=== PATIENT | female | born 2000 | race Caucasian/White ===

== ENCOUNTER → 2022-08-24 11:30 | Outpatient (BNVA) | payer MEDICAID, SELFPAY | PROVIDERS: Visit Provider Obstetrics & Gynecology | DX: Z34.00 Encounter for supervision of normal first pregnancy, unspecified trimester (principal) | CPT/HCPCS: 80307; 84315; 84443; 85025; 86592; 86762; 86803; 86850; 86900; 87086; 87340; 87491; 87591; 87661; 87806; 88175 ==

== ENCOUNTER → 2022-09-14 14:00 | Outpatient (BNVA) | payer MEDICAID, SELFPAY | PROVIDERS: Visit Provider Obstetrics & Gynecology | DX: O09.899 Supervision of other high risk pregnancies, unspecified trimester (principal); Z3A.00 Weeks of gestation of pregnancy not specified | CPT/HCPCS: 81000; 87491; 87591; 87661 ==

== ENCOUNTER → 2022-11-15 15:59 | Outpatient (BNVA) | payer MEDICAID, SELFPAY | PROVIDERS: Visit Provider Nurse Practitioner Women's Health | DX: O09.899 Supervision of other high risk pregnancies, unspecified trimester (principal); Z3A.00 Weeks of gestation of pregnancy not specified | CPT/HCPCS: 81000 ==

== ENCOUNTER → 2022-12-06 09:47 | Outpatient (BNVA) | payer MEDICAID, SELFPAY | PROVIDERS: Visit Provider Obstetrics & Gynecology | DX: O09.899 Supervision of other high risk pregnancies, unspecified trimester (principal); Z3A.00 Weeks of gestation of pregnancy not specified | CPT/HCPCS: 81000 ==

== ENCOUNTER → 2022-12-21 10:10 | Outpatient (BNVA) | payer MEDICAID, SELFPAY | PROVIDERS: Visit Provider Obstetrics & Gynecology | DX: O09.899 Supervision of other high risk pregnancies, unspecified trimester (principal); Z3A.00 Weeks of gestation of pregnancy not specified | CPT/HCPCS: 81000; 82950; 85025 ==

== ENCOUNTER → 2023-01-03 10:45 | Outpatient (BNVA) | payer MEDICAID, SELFPAY | PROVIDERS: Visit Provider Obstetrics & Gynecology | DX: O09.899 Supervision of other high risk pregnancies, unspecified trimester (principal); Z3A.00 Weeks of gestation of pregnancy not specified | CPT/HCPCS: 81000; 85025; 87086 ==

== ENCOUNTER → 2023-01-17 10:26 | Outpatient (BNVA) | payer MEDICAID, SELFPAY | PROVIDERS: Visit Provider Nurse Practitioner Women's Health | DX: O09.899 Supervision of other high risk pregnancies, unspecified trimester (principal); Z3A.00 Weeks of gestation of pregnancy not specified | CPT/HCPCS: 81000 ==

== ENCOUNTER → 2023-01-31 09:57 | Outpatient (BNVA) | payer MEDICAID, SELFPAY | PROVIDERS: Visit Provider Obstetrics & Gynecology | DX: O09.899 Supervision of other high risk pregnancies, unspecified trimester (principal) | CPT/HCPCS: 81000; 85025 ==

== ENCOUNTER → 2023-02-07 11:35 | Outpatient (BNVA) | payer MEDICAID, SELFPAY | PROVIDERS: Visit Provider Obstetrics & Gynecology | DX: O09.899 Supervision of other high risk pregnancies, unspecified trimester (principal); Z3A.00 Weeks of gestation of pregnancy not specified | CPT/HCPCS: 80053; 81000; 85025; 87086 ==

== ENCOUNTER → 2023-02-14 11:05 | Outpatient (BNVA) | payer MEDICAID, SELFPAY | PROVIDERS: Visit Provider Obstetrics & Gynecology | DX: O09.899 Supervision of other high risk pregnancies, unspecified trimester (principal); Z3A.00 Weeks of gestation of pregnancy not specified | CPT/HCPCS: 81000; 87081 ==

== ENCOUNTER → 2023-02-21 10:30 | Outpatient (BNVA) | payer MEDICAID, SELFPAY | PROVIDERS: Visit Provider Obstetrics & Gynecology | DX: O09.899 Supervision of other high risk pregnancies, unspecified trimester (principal); Z3A.00 Weeks of gestation of pregnancy not specified | CPT/HCPCS: 81000; 87086 ==

== ENCOUNTER 2023-02-28 11:00 | Outpatient (CLI) | payer MEDICAID, SELFPAY ==
[2023-02-28] VITALS (13 sets, daily range): BP systolic 110–135; BP diastolic 56–78; PULSE 71–96; BMI 39.9
== END 2023-02-28 12:20 | disposition home or self-care (01) ==
LOC: OPOB 11:01 → OBGYN 11:01
PROVIDERS: Visit Provider Obstetrics & Gynecology
DX: O36.60X0 Maternal care for excessive fetal growth, unspecified trimester, not applicable or unspecified (principal); Z3A.00 Weeks of gestation of pregnancy not specified
CPT/HCPCS: 59025; 81000; 99211

== ENCOUNTER 2023-03-01 01:16 | Outpatient (CLI) | payer MEDICAID, SELFPAY ==
[2023-03-01 01:26] VITALS: RESP 18; BMI 39.9
[2023-03-01 01:49] VITALS: TEMP 35.6
[2023-03-01 01:50] VITALS: BP 132/67; PULSE 83
[2023-03-01 02:02] LABS: Actim Prom Negative
[2023-03-01 02:10] VITALS: BP 126/74; PULSE 88
[2023-03-01 02:15] VITALS: BP 126/74; PULSE 88; RESP 17; TEMP 36.8
[2023-03-01 02:26] LABS: Nitrazine Paper, PH Inconclusive
== END 2023-03-01 02:15 | disposition home or self-care (01) ==
LOC: OPOB 01:25 → OBGYN 01:30
PROVIDERS: Visit Provider Obstetrics & Gynecology
DX: O26.899 Other specified pregnancy related conditions, unspecified trimester (principal); N89.8 Other specified noninflammatory disorders of vagina; Z3A.00 Weeks of gestation of pregnancy not specified
CPT/HCPCS: 59025; 83986; 84112; 99211

== ENCOUNTER 2023-03-03 00:03 | Inpatient (IN) | payer MEDICAID, SELFPAY ==
[2023-03-02 22:42] VITALS: BP 129/73; PULSE 69
[2023-03-02 23:09] VITALS: RESP 16; TEMP 36.6
[2023-03-02 23:40] VITALS: BP 131/70; PULSE 71
[2023-03-03] VITALS (39 sets, daily range): BP systolic 103–155; BP diastolic 55–91; PULSE 83–113; RESP 16–18; TEMP 36.2–36.7; O2SAT 97–99; BMI 39.9
[2023-03-03 00:34] LABS: Basophils % 0.2 %; Eosinophils # 0.1 10^3/uL (0.0-0.8); Eosinophils % 0.5 %; Hemoglobin 11.3 g/dL (11.5-15.3); Lymphocytes # 1.7 10^3/uL (0.8-4.8); Lymphocytes % 12.6 %; Mean Corpuscular HGB Conc 32.3 g/dL (30.0-36.0); Mean Corpuscular Hemoglobin 27.6 pg (28.0-34.0); Mean Corpuscular Volume 85.6 fl (81-99); Mean Platelet Volume 11.9 fL (7.4-10.4); Monocytes # 0.6 10^3/uL (0.2-0.9); Monocytes % 4.7 %; Neutrophils # 10.74 10^3/uL (1.8-7.7); Neutrophils % 81.6 %; Nucleated Red Blood Cells % 0 %; Platelet Count 183 10^3/cmm (130-400); Red Blood Count 4.09 10^6/uL (4.1-5.3); White Blood Count 13.2 10^3/uL (4.0-10.0)
[2023-03-03 00:49] LABS: Slide Review Slide Review Perform
[2023-03-03] MEDS: dextrose 5%-lactated ringers 1,000 ML 125 ML IV (06:16)
--- NOTE | 2023-03-03 06:22 | PM.OPHPUD ---
Labor & Delivery H&P Update Date of Procedure: March 03, 2023 Date H&P Performed: 02/28/23 H&P update information: I have reviewed H&P completed within last 30 days and I have examined patient prior to procedure Changes to previous documentation: The patient presents for SROM at home. She has grossly ruptured membranes. Cervix Admission Diagnosis: iup @ 38w2d, LGA, history of gestational hypertension, labile blood pressure, obesity, bipolar disorder (no medication) Related Problem List Diagnoses (1) macrosomia: (2) Obesity: (3) Bipolar disorder: (4) History of gestational hypertension: (5) Supervision of other high-risk :
[2023-03-03] MEDS: ampicillin 2,000 MG in sodium chloride 0.9% (plus) 50 ML 100 MG IV (09:36)
[2023-03-03] MEDS: ampicillin 1,000 MG in sodium chloride 0.9% (plus) 50 ML 100 MG IV (14:31)
[2023-03-03] MEDS: fentaNYL 50 mcg/mL INJ 2mL IVP ×2 (14:31→15:38)
[2023-03-03] MEDS: lactated ringers 1,000 ML 999 ML IV (15:38)
--- NOTE | 2023-03-03 16:22 | P.ANESASSM_ITS ---
Pre-Anesthetic Assessment Height/Weight: Height 1.8 m Weight 129.727 kg Temp Pulse Resp BP Pulse Ox O2 Del Method 98.0 F 93 18 133/79 97 Room Air 03/03/23 04:16 03/03/23 16:13 03/03/23 15:38 03/03/23 16:13 03/03/23 15:59 03/03/23 07:00 Preop Diagnosis: IUP Labor Epidural Familial anesthetic complications: None Last intake: solid 1600 03/02/23 clears- current Social No alcohol and No tobacco Exam alert, oriented x 3 and clear to auscultation bilaterally Airway Submandibular: within normal limits Cervical ROM: within normal limits Mallampati: Class II Dentition: full History/ROS No significant history except as noted Pulmonary None reported CV/HEM None reported None reported Hepatic None reported GI None reported Metabolic Morbid Obesity Neuropsych Bipolar Anesthetic Plan ASA status: 2 Anesthesia: Regional (specify below) Other: Labor Epidural Medications/Allergies Home Medications Medication Instructions Recorded Confirmed Last Taken Type multivitamin with iron (Daily 1 tab PO DAILY 01/17/23 03/02/23 03/02/23 History Multiple Vitamins with Iron tablet) ferrous sulfate 325 mg (65 mg 325 mg PO DAILY 02/14/23 03/02/23 03/02/23 History iron) tablet (Iron (ferrous sulfate)) Allergies Allergy/AdvReac Type Severity Reaction Status Date / Time pineapple Allergy ADR-Itching Verified 03/02/23 23:19 Current Medications Generic Name Dose Route Start Last Admin Trade Name Freq PRN Reason Stop Dose Admin Fentanyl 25 - 100 mcg 03/02/23 23:09 03/03/23 15:38 Fentanyl 50 Mcg/Ml Inj 2ml IVP 50 mcg Q1H PRN Administration SEVERE PAIN Dextrose/Lactated Ringer's 1,000 mls @ 125 mls/hr 03/02/23 23:09 03/03/23 06:16 Dextrose 5%-Lactated Ringers IV 125 mls/hr .Q8H PRN Administration labor Oxytocin 30 unit/ Sodium 503 mls @ 1 mls/hr 03/03/23 07:15 03/03/23 10:30 Chloride IV 2 ml/hr .Q24H MICHELLE 2 mls/hr Titration Protocol Ampicillin Sodium 1,000 mg/ 50 mls @ 100 mls/hr 03/03/23 14:02 03/03/23 14:31 Sodium Chloride IV 100 mls/hr Q4H MICHELLE Administration Protocol Lactated Ringer's 1,000 mls @ 999 mls/hr 03/03/23 15:27 03/03/23 15:38 Lactated Ringers IV 999 mls/hr .Q1H1M PRN Administration See label comments PFSH Anesthesia Medical History No pertinent past medical history Supervision of normal first Family History Grandfather Diabetes Grandmother Hypertension Denies family history of Colon cancer Ovarian cancer Thyroid cancer Heart disease Hypercholesteremia Breast cancer Uterine cancer Stroke Social History Smoking and tobacco status: never smoked Female Reproductive History : 3 Data Anesthesia 03/03/23 00:05 Short CBC 03/03/23 Range/Units 00:05 WBC 13.2 H (4.0-10.0) 10^3/uL Hgb 11.3 L (11.5-15.3) g/dL Hct 35.0 L (37.0-47.0) % MCV 85.6 (81-99) fl Plt Count 183 (130-400) 10^3/cmm Neut % (Auto) 81.6 % Neut # (Auto) 10.74 H (1.8-7.7) 10^3/uL Cardiac Studies: No Data to Display Anesthesia Procedures Epidural Time Out Performed: Yes Consent: from patient, risks and benefits reviewed and patient agrees to proceed Lumbar Level: L3-L4 Epidural position: sitting Epidural procedure: sterile prep of area, 1% lidocaine to numb the area, negative for paresthesia passed, test dose given, 1.5% xylocaine 1:200k epi, no systemic response, sterile dressing applied and L.U.D. no apparent complications Additional Comments: EDUARDO at 7.5 cm catheter threaded to 12cm. 5ml test dose given no systemic response. Patient given 100 mcg Fentanyl via epidural. Patient laid in supine position and started requesting to push. RN checked patient she was dialated to 10cm +1 station. called vital signs assessed 5ml 3% choloroprocaine given via epidural. Adequate analgesia achieved, baby delivered with DIVISION COMMANDER at bedside. Infusion of Ropivicaine was never started.
--- NOTE | 2023-03-03 16:30 | PM.DELIVERY ---
Delivery Note: Date of delivery: March 03, 2023 Pre-delivery diagnoses: iup@ 38w3d, PROM, LGA, obesity, bipolar disorder Post-delivery diagnoses: same-delivered Procedure: Delivering Physician: chip Estimated blood loss (mL): 25 Findings: term female in the cephalic presentation, single nuchal cord Pre-Delivery Course: The patient presented to labor and delivery with a complaint of PROM at 0300 hours. She was allowed to labor naturally, per her request. She did not make any change and allowed pitocin to be started. She received an epidural for pain management. She had complete cervical dilation and began to push. Delivery: The patient had complete cervical dilation and began to push. The head delivered in the NATASHA position over an intact perineum under epidural anesthesia. A single nuchal cord was reduced at the perineum. The shoulders and body delivered atraumatically. The baby was placed onto the mother's abdomen. The nose and mouth were bulb suctioned. The cord was clamped and cut. The placenta delivered spontaneously. It was inspected and found to be intact. Inspection of the perineum revealed no lacerations and no repair was required. Estimated blood loss 25 mL. Apgars on baby were 7 at 1 minute and 9 at 5 minutes. Weight of baby is 8 pounds 5 ounces. Mother and baby were stable post delivery. History History History 3 Term 2 0 Miscarriages/Ectopic 0 Living Children 2 Coding Level of Care Code Acute Code for Chg Fwd Diagnoses
[2023-03-03] MEDS: docusate sodium 100 mg Capsule PO (18:00)
[2023-03-03] MEDS: benzocaine-menthol 78 gm Canister 1 SPRAY TOPICAL (18:00)
[2023-03-03] MEDS: lanolin oint 7 gm 1 APPLIC TOPICAL (18:00)
[2023-03-04] MEDS: ibuprofen 800 mg tablet PO ×3 (00:02→15:23)
[2023-03-04 01:59] VITALS: BP 109/64; PULSE 70
[2023-03-04 04:47] LABS: Hemoglobin 11.3 g/dL (11.5-15.3); Mean Corpuscular HGB Conc 32.3 g/dL (30.0-36.0); Mean Corpuscular Hemoglobin 27.6 pg (28.0-34.0); Mean Corpuscular Volume 85.6 fl (81-99); Mean Platelet Volume 11.7 fL (7.4-10.4); Platelet Count 188 10^3/cmm (130-400); Red Blood Count 4.09 10^6/uL (4.1-5.3); Red Cell Distribution Width 16.3 % (12.1-15.1); White Blood Count 21.2 10^3/uL (4.0-10.0)
--- NOTE | 2023-03-04 08:47 | P.DS_ITS ---
Discharge Providers Date of Admission: 03/03/23 00:03 Date of Discharge: March 04, 2023 Attending Provider at Admission: Mary Franz MD Attending Provider at Discharge: Mary Franz MD Diagnoses at Discharge Discharge Diagnosis (1) macrosomia: Status: Acute (2) Obesity: Status: Acute (3) Bipolar disorder: Status: Acute (4) History of gestational hypertension: Status: Acute (5) Supervision of other high-risk : Status: Acute Reason for Visit Reason for Visit: contractions, possible SROM Hospital Course Hospital Course The patient was admitted with PROM. She was augmented with pitocin. She had spontaneous delivery of a term . She did well and on day #1, she was requesting discharge. Physical Exam Narrative: The patient is doing well this morning. no concerns. Const: COMMON NORMALS: no acute distress, patient oriented x3, no limitations, healthy appearing, alert and well nourished GENERAL APPEARANCE: cooperative, comfortable, well kempt and well developed ORIENTATION/CONSCIOUSNESS: Yes awake, Yes oriented to person, Yes oriented to place and Yes oriented to time Resp: COMMON NORMALS: normal respiratory effort EFFORT & INSPECTION: Yes able to speak in complete sentences GI: COMMON NORMALS: Soft to palpation PALPATION: Yes Soft to palpation Extremity: COMMON NORMALS: no calf tenderness Neuro: COMMON NORMALS: patient oriented x3 SENSORIUM/ORIENTATION: Yes alert, Yes oriented to person, Yes oriented to place and Yes oriented to time Psych: APPEARANCE: Yes well kempt Discharge Data Studies Completed and Pending Laboratory Results WBC 21.2 10^3/uL (4.0-10.0) H 03/04/23 04:42 RBC 4.09 10^6/uL (4.1-5.3) L 03/04/23 04:42 Hgb 11.3 g/dL (11.5-15.3) L 03/04/23 04:42 Hct 35.0 % (37.0-47.0) L 03/04/23 04:42 MCV 85.6 fl (81-99) 03/04/23 04:42 MCH 27.6 pg (28.0-34.0) L 03/04/23 04:42 MCHC 32.3 g/dL (30.0-36.0) 03/04/23 04:42 RDW 16.3 % (12.1-15.1) H 03/04/23 04:42 Plt Count 188 10^3/cmm (130-400) 03/04/23 04:42 MPV 11.7 fL (7.4-10.4) H 03/04/23 04:42 Neut % (Auto) 81.6 % 03/03/23 00:05 Lymph % (Auto) 12.6 % 03/03/23 00:05 [place] % (Auto) 4.7 % 03/03/23 00:05 Eos % (Auto) 0.5 % 03/03/23 00:05 Baso % (Auto) 0.2 % 03/03/23 00:05 Neut # (Auto) 10.74 10^3/uL (1.8-7.7) H 03/03/23 00:05 Lymph # (Auto) 1.7 10^3/uL (0.8-4.8) 03/03/23 00:05 [place] # (Auto) 0.6 10^3/uL (0.2-0.9) 03/03/23 00:05 Eos # (Auto) 0.1 10^3/uL (0.0-0.8) 03/03/23 00:05 Baso # (Auto) 0.0 10^3/uL (0.0-0.1) 03/03/23 00:05 Nucleated RBC % (auto) 0 % 03/03/23 00:05 Nucleated RBCs # 0.0 /100WBC 03/03/23 00:05 Vitals Last Vital Signs Temp 97.9 F 03/03/23 23:09 Pulse 70 03/04/23 01:59 Resp 16 03/03/23 23:09 BP 109/64 03/04/23 01:59 Pulse Ox 97 03/03/23 15:59 O2 Del Method Room Air 03/03/23 07:00 Discharge Plan Discharge Condition: Stable Prescriptions: Continued multivitamin with iron [Daily Multiple Vitamins/Iron] Tablet 1 tab PO DAILY ferrous sulfate [Iron (ferrous sulfate)] 325 mg (65 mg iron) tablet 325 mg PO DAILY Discharge Orders: Discharge Order (Routine); Ordered 03/04/23 Ordered By: Mary Franz Patient Instructions: Opioid Safety Discharge Attestations Time Spent in Discharge Care*: less than 30 min Quality Metrics Clinical Quality Measures [ No reported AMI, CVA or VTE this stay] Coding Level of Care Code Acute Code for Chg Fwd Diagnoses macrosomia Obesity E66.9 Bipolar disorder F31.9 History of gestational hypertension Z87.59 Supervision of other high-risk O09.899
[2023-03-04] MEDS: prenatal vitamin Capsule 1 CAP PO (09:00)
[2023-03-04] MEDS: docusate sodium 100 mg Capsule PO (09:00)
[2023-03-04 09:04] VITALS: BP 114/78; PULSE 76
--- NOTE | 2023-03-04 09:23 | ANE.PACU2 ---
Inpatient post-anesthesia follow up: Airway intact: Yes Vital signs: Temperature 97.9 F Pulse Rate 76 Respiratory Rate 16 Blood Pressure 114/78 Pulse Oximetry 97 Oxygen Delivery Me thod Room Air Oxygen Flow Rate Fraction of Inspir ed Oxygen Hydration adequate: Yes Nausea and vomiting: No Pain level: 2 Mental status: Baseline
[2023-03-04 18:01] VITALS: BP 125/95; PULSE 83
[2023-03-04 18:04] VITALS: BP 117/81; PULSE 89
[2023-03-04 18:15] VITALS: BP 117/81; PULSE 89; RESP 16; TEMP 36.7
== END 2023-03-04 18:15 | disposition hospice, home (50) | DRG 807 ==
LOC: OPOB 00:03 → OBGYN 00:03
PROVIDERS: Admitting Provider Obstetrics & Gynecology; Visit Provider Obstetrics & Gynecology
DX: O13.4 Gestational [pregnancy-induced] hypertension without significant proteinuria, complicating childbirth (principal); Z37.0 Single live birth; O69.2XX0 Labor and delivery complicated by other cord entanglement, with compression, not applicable or unspecified; O99.344 Other mental disorders complicating childbirth; O99.214 Obesity complicating childbirth; O36.63X0 Maternal care for excessive fetal growth, third trimester, not applicable or unspecified; Z3A.38 38 weeks gestation of pregnancy; F31.9 Bipolar disorder, unspecified; Z79.82 Long term (current) use of aspirin
CPT/HCPCS: 36415; 59025; 59409; 85025; 85027; 96374; 96376; 99211; J0290; J2400; J2795; J3010; J7040; J7120; J7121